=== PATIENT | female | born 1985 ===

== ENCOUNTER 2017-01-24 10:41 | Emergency (ER) | payer OTHER ==
[2017-01-24 10:55] VITALS: BMI 21.4
[2017-01-24 10:58] VITALS: O2SAT 98
[2017-01-24 11:49] LABS: RBC URINE 2 /hpf (0-3); URINE BACTERIA RARE (<OCC); URINE BILIRUBIN NEGATIVE (NEGATIVE); URINE BLOOD NEGATIVE (NEGATIVE); URINE COLOR Yellow (YELLOW); URINE GLUCOSE (UA) NORMAL (Normal); URINE KETONE NEGATIVE (NEGATIVE); URINE LEUKOCYTE ESTERASE TRACE Leu/uL (Negative); URINE PROTEIN NEGATIVE (NEGATIVE); URINE UROBILINOGEN NORMAL mg/dL (0.2-1.0); WBC URINE < 1 /hpf (0-5)
--- NOTE | 2017-01-24 12:01 | C.PDOC ---
History Of Present Illness 31 yr old female presents to the ER with complaints of RUQ and suprapubic pain, intermittent for the for the past few days associated with AM nausea. Pt states LMP was December 26, 2016. Patient denies fever, chills, recent illness, CP, SOB , dyspnea, diaphoresis, vomiting, diarrhea, dysuria, vaginal bleeding or discharge. Ambulate to ED for evaluation, not in any apparent distress. Time Seen by Provider: 01/24/17 11:37 Chief Complaint (Nursing): Female Genitourinary History Per: Patient History/Exam Limitations: no limitations Onset/Duration Of Symptoms: Intermittent Episodes (few days) Past Medical History Reviewed: Historical Data, Nursing Documentation, Vital Signs Vital Signs: Last Vital Signs Temp 98.3 F 01/24/17 10:55 Pulse 79 01/24/17 10:55 Resp 16 01/24/17 10:55 BP 109/70 01/24/17 10:55 Pulse Ox 98 01/24/17 12:32 Family History: States: No Known Family Hx - Social History Hx Alcohol Use: No Hx Substance Use: No - Immunization History Hx Tetanus Toxoid Vaccination: No Hx Influenza Vaccination: No Hx Pneumococcal Vaccination: No Review Of Systems Except As Marked, All Systems Reviewed And Found Negative. Constitutional: Negative for: Fever, Chills Gastrointestinal: Positive for: Nausea, Abdominal Pain (RUQ pain ). Negative for: Vomiting, Diarrhea Genitourinary: Negative for: Dysuria, Incontinence Neurological: Negative for: Weakness, Numbness Physical Exam - Physical Exam Appears: Well, Non-toxic, No Acute Distress Skin: Normal Color, Warm, Dry, No Rash Head: Atraumatic, Normacephalic Eye(s): bilateral: Normal Inspection Nose: Normal Oral Mucosa: Moist Throat: Normal, No Erythema, No Exudate, No Drooling Neck: Normal, Normal ROM, Supple Chest: Symmetrical, No Tenderness Cardiovascular: Rhythm Regular, No Murmur Respiratory: Normal Breath Sounds, No Rales, No Rhonchi, No Stridor, No Wheezing Gastrointestinal/Abdominal: Soft, Tenderness (RUQ ), No Distention, No Guarding , No Rebound Back: Normal Inspection, No CVA Tenderness Extremity: Normal ROM, No Pedal Edema, No Swelling Neurological/Psych: Oriented x3, Normal Speech ED Course And Treatment O2 Sat by Pulse Oximetry: 98 Pulse Ox Interpretation: Normal Progress Note: Urinalysis results was normal. Patient is positive for . results discussed with patient and pt was unaware of current . Patient is , denies history of ectopic . US order. At 12:00, results of US review, no abnormal findings. Again, pt denies vaginal bleeidng or cramping, no findings of threatened or any other acute findings. Abd: benign, (-) guarding, (-) rebound. Pt advised to F/U with OB in 1-2 days for re-evaluation. Return to ED if any worsening or new changes. Medical Decision Making Medical Decision Making: PLAN: * US - Gallbladder & Hepatic * HCG Urine * Urinalysis Disposition Counseled Patient/Family Regarding: Studies Performed, Diagnosis, Need For Followup - Disposition [facility] Disposition: HOME/ ROUTINE Disposition Time: 12:02 Condition: STABLE Additional Instructions: Follow up with OB in 1-2 days for re-evaluation. Return to ED immediately if any vaginal bleeding, severe abdominal schwab or any other worsening or new changes. Prescriptions: Multivit/Folic Acid/I [ Plus] 1 tab PO DAILY #30 tab Instructions: (ED) Print Language: SLOVENIAN - Clinical Impression Clinical Impression: - PA / FUR CLEANER / Resident Statement MD/DO has reviewed & agrees with the documentation as recorded. - Scribe Statement The provider has reviewed the documentation as recorded by the Scribe Rae Munoz All medical record entries made by the Scribe were at my direction and personally dictated by me. I have reviewed the chart and agree that the record accurately reflects my personal performance of the history, physical exam, medical decision making, and the department course for this patient. I have also personally directed, reviewed, and agree with the discharge instructions and disposition.
[2017-01-24 13:06] VITALS: BP 124/72; PULSE 70; RESP 11; TEMP 98.2
--- NOTE | 2017-01-24 13:28 | US ---
Right upper quadrant abdominal ultrasound History: Right upper quadrant abdominal pain. Comparison: None available. Technique: Real-time sonography was performed through the right upper quadrant of the abdomen. Findings: Liver: 14.8 centimeters in length, within normal limits. Gallbladder appears preserved. Common bile duct measures 3 millimeters, within normal limits. Visualized portions of the pancreas are preserved. Pancreatic tail not well visualized. Right kidney: 11.3 x 5.6 x 5.3 centimeters, within normal limits. Impression: Unremarkable sonographic evaluation of the right upper quadrant of the abdomen.
== END 2017-01-24 13:06 | disposition home or self-care (01) ==
LOC: C.ER 10:41
DX: O26.891 Other specified pregnancy related conditions, first trimester (principal); Z3A.00 Weeks of gestation of pregnancy not specified